=== PATIENT | female | born 1960 | race Caucasian/White ===

== ENCOUNTER → 2018-05-03 13:42 | Outpatient (CLI) | payer BC, SELFPAY ==
--- NOTE | 2018-05-03 | PATH_ITS ---
[facility] Accession Number: [id number] . 01 Material submitted: . LEFT BREAST MASS . 01 Clinical history: . LEFT BREAST MASS 3:00; 4 CM FROM NIPPLE . 02 Diagnosis: Left Breast Needle Core Biopsy at 3 o'clock, 4 cm from the Nipple: Benign epithelial cyst with areas of benign papillary epthelial hyperplasia and adjacent dense fibrosclerosis. Negative for significant atypia and malignancy. MRV/05/04/2018 . 02 Electronically signed: . Juanjose Gresham MD, Pathologist NPI- [id number] . 01 Gross description: . Received one formalin-filled container labeled with the patient's name and designated left breast mass 3 o'clock, 4 cm from nipple. The specimen is received with plastic filter in container. Sample loose in container. The specimen consists of multiple light yellow-stern portions of tissue, which aggregate to 1.0 x 0.5 x 0.3 cm. The specimen is filtered and entirely submitted in one cassette. Collection date 05/03/2018. Collection time per container is 2:20 p.m. Total fixation time 12 hours up to 24. ([id number][place] /[facility] . 02 Pathologist provided ICD-10: N60.12 . 02 CPT . 262441 Performed at: 01 [facility] [address] [facility], [place], [place] [id number] MD Krzysztof Villalobos MD Phone: [phone] Performed at: 02 [facility] [address] [place], [place] [id number] MD Hernesto Sarkar MD Phone: [phone]
--- NOTE | 2018-05-03 | DI.MG.S_ITS ---
UNILATERAL LEFT DIGITAL DIAGNOSTIC MAMMOGRAM: 05/03/2018 CLINICAL: Post left breast ultrasound biopsy clip placement imaging. Comparison is made to exams dated: 01/22/2018 mammogram, 01/04/2018 mammogram, and 07/30/2016 mammogram - [facility]. The tissue of the left breast is heterogeneously dense. This may lower the sensitivity of mammography. There is a marker clip in the appropriate position in the left breast at 3 o'clock anterior depth. This marker clip placement is at biopsy site. This correlates with the prior exam. IMPRESSION: POST PROCEDURE MAMMOGRAM FOR MARKER PLACEMENT There was a successful marker clip placement in the left breast anterior depth. This exam was interpreted at Station ID: [id number]. NOTE: For mammograms, a report in lay terms will be sent to the patient. Approximately 15% of breast malignancies will not be visualized mammographically. In the management of a palpable breast mass, a negative mammogram must not discourage biopsy of a clinically suspicious lesion. Electronically Signed By: Deonte cueto/:05/03/2018 15:27:12 ACR BI-RADS Category Post-procedure mammogram for marker placement
--- NOTE | 2018-05-03 13:45 | DI.US.S_ITS ---
ULTRASOUND GUIDED BIOPSY LEFT BREAST USING VACUUM DEVICE WITH MARKING DEVICE INSERTED AND POST DIGITAL MAMMOGRAPHIC AND ULTRASOUND IMAGIN05/03/2018 CLINICAL: Left breast mass. PATIENT CONSENT: Risks (minor bleeding, infection, vasovagal reaction and repeat procedure), benefits and alternatives were explained to the patient and written informed consent was obtained. Correlation is made to exams dated: 01/22/2018 ultrasound, 01/22/2018 mammogram, 01/04/2018 mammogram, and 07/30/2016 mammogram - . An ultrasound guided biopsy using real-time ultrasound was performed for the 1 cm circumscribed oval cystic mass located in the left breast at 3 o'clock middle depth. This was described on the previous ultrasound report. The skin was prepped in the usual manner. Local anesthetic was administered to the access site. A skin sania was made in the breast. The abnormality was approached from the lateral aspect. A 10 gauge biopsy needle was placed adjacent to the abnormality under ultrasound guidance. Once the needle was documented to be in the correct location, three specimens were obtained using the Mammotome biopsy system. The patient received additional local anesthetic during the procedure. A titanium clip was inserted into the biopsy cavity. A sterile dressing was applied to the access site. Post procedure digital mammographic and ultrasound imaging demonstrates the clip at the targeted area and complete removal of the abnormality. The specimens were sent to the laboratory for pathological analysis. IMPRESSION: ULTRASOUND GUIDED BIOPSY BENIGN Ultrasound guided biopsy of the 1 cm cystic mass in the left breast at 3 o'clock middle depth was successful. Pathology indicates benign epithelial cyst with areas of benign papillary epithelial hyperplasia and adjacent dense fibrosclerosis, negative for significant atypia or malignancy. Pathology results are concordant with imaging findings. A follow-up ultrasound in 6 months is recommended to demonstrate stability. These results will be communicated to the patient's ordering provider. This exam was interpreted at Station ID: [id number]. Deonte cueto,ecl/:05/12/2018 01:51:32
== END ==
PROVIDERS: Family Provider Internal Medicine; PCP Internal Medicine
DX: N60.02 Solitary cyst of left breast (principal); R92.8 Other abnormal and inconclusive findings on diagnostic imaging of breast
CPT/HCPCS: 19083; 77065

== ENCOUNTER → 2019-08-24 07:58 | Outpatient (CLI) | payer BC, SELFPAY ==
--- NOTE | 2019-08-24 | DI.MG.S_ITS ---
BILATERAL DIGITAL SCREENING MAMMOGRAM 3D/2D WITH CAD: 08/24/2019 CLINICAL: Routine screening. Family history of breast cancer. Comparison is made to exams dated: 05/03/2018 mammogram, 01/22/2018 mammogram, and 01/04/2018 mammogram - [facility]. The tissue of both breasts is heterogeneously dense. This may lower the sensitivity of mammography. Current study was also evaluated with a Computer Aided Detection (CAD) system. There are benign calcifications in the left breast. There also are benign post operative findings and biopsy clip in the left breast. No significant masses, calcifications, or other findings are seen in either breast. There has been no significant interval change. IMPRESSION: There is no mammographic evidence of malignancy. A 1 year screening mammogram is recommended. This exam was interpreted at Station ID: [id number]. NOTE: For mammograms, a report in lay terms will be sent to the patient. Approximately 15% of breast malignancies will not be visualized mammographically. In the management of a palpable breast mass, a negative mammogram must not discourage biopsy of a clinically suspicious lesion. Electronically Signed By: Efrain cohn/fiordaliza:08/24/2019 08:45:41 letter sent: Normal Exam ACR BI-RADS Category 2: Benign Finding(s) 3342F
== END ==
PROVIDERS: PCP Internal Medicine; Visit Provider Internal Medicine
DX: Z12.31 Encounter for screening mammogram for malignant neoplasm of breast (principal); Z80.3 Family history of malignant neoplasm of breast
CPT/HCPCS: 77063; 77067

== ENCOUNTER → 2019-08-25 14:48 | Outpatient (CLI) | payer BC, SELFPAY ==
--- NOTE | 2019-09-02 16:21 | PM.PFT.1 ---
Pulmonary Function Test Referral & Results Date Patient Seen: 08/25/19 Requesting provider: Marisa Chávez Results: The spirometry demonstrates an FVC of 3.62 L which is 100% of predicted. The FEV1 was measured at 2.87 L which is 102% of predicted. The FEV1/FVC ratio was 79 which is 100% of predicted. Following the administration of bronchodilator there was no appreciable change to above normal numbers. Lung volumes show an SVC of 3.63 L which is 109% of predicted. The diffusing capacity was measured at 25.02 which is 92% of predicted. The maximum voluntary ventilation was normal Interpretation: This study demonstrates normal pulmonary function
== END ==
PROVIDERS: PCP Internal Medicine; Visit Provider Internal Medicine
DX: R05 Cough (principal)
CPT/HCPCS: 94060; 94726; 94729

== ENCOUNTER → 2019-09-02 11:05 | Outpatient (CLI) | payer BC, SELFPAY ==
--- NOTE | 2019-09-02 | DI.CT.S_ITS ---
PROCEDURE: CT CHEST WO CON INDICATIONS: Cough TECHNIQUE: Noncontrast 5 mm thick sections acquired from the pulmonary apices to the posterior costophrenic angles. 1 mm lung window, 5 mm thick coronal and sagittal and 7 mm axial MIP reformats were then acquired. For radiation dose reduction, the following was used: automated exposure control, adjustment of mA and/or kV according to patient size. COMPARISON: None. FINDINGS: Image quality: Excellent. Lungs and pleura: Very minimal tree in bud and reticulonodular pattern at the central right lung base. Minor distal airways thickening in the right lower lobe. Airways are otherwise normal. No other parenchymal abnormalities, such as consolidations, cysts, nodules, or fibrotic changes. No pleural effusions or pneumothorax. Mediastinum: Heart size is normal. No pericardial effusion. No mediastinal adenopathy by size criteria. Thoracic aorta and central pulmonary arteries are normal in size. Esophagus is normal in caliber. No hiatal hernia. Bones and chest wall: No suspicious bony lesions. No vertebral body compression fractures. No axillary or supraclavicular adenopathy by size criteria. Thyroid gland is normal. Abdomen: Visualized upper abdomen demonstrates an irregular 2.7 cm hypodensity in the posterior right hepatic lobe. There are other subcentimeter ovoid focal hypodensities, presumably cysts towards the liver dome in the left lobe. The upper abdomen is otherwise normal. IMPRESSION: 1. Very small focus of alveolitis at the base of the right lower lobe without consolidation. Likely residual from bronchitis, less likely reactive airways disease or aspiration. 2. Lungs are otherwise clear. 3. Incidentally noted 2.7 cm hepatic hypodensity. This may be benign such as a hemangioma or multilobulated cyst. Further evaluation with liver protocol MRI with contrast is recommended. Dictated by: Mary Oro M.D. on 09/02/2019 at 14:08 Approved by: Mary Oro M.D. on 09/02/2019 at 14:23
== END ==
PROVIDERS: PCP Internal Medicine; Visit Provider Internal Medicine
DX: R05 Cough (principal)
CPT/HCPCS: 71250; 87070; 87205

== ENCOUNTER → 2019-09-02 11:41 | Outpatient (CLI) | payer BC, SELFPAY | PROVIDERS: PCP Internal Medicine; Visit Provider Internal Medicine | DX: R05 Cough (principal) | CPT/HCPCS: 87070; 87205 ==

== ENCOUNTER → 2019-10-19 16:39 | Outpatient (ROUT) | payer BC, SELFPAY ==
[2019-10-19 17:10] LABS: Add Manual Diff / Slide Review NO; Basophils Absolute Auto 0 /uL (0-100); Basophils Percent Auto 0.7 % (0-2); Eosinophils Absolute Auto 200 /uL (0-450); Eosinophils Percent Auto 3.7 % (2-4); Hematocrit 46.5 % (36-46); Hemoglobin 15.6 g/dL (12.0-16.0); Lymphocytes Absolute Auto 2300 /uL (1100-4500); Lymphocytes Percent Auto 41.1 % (25-40); Mean Corpuscular HGB Conc 33.6 % (30-36); Mean Corpuscular Hemoglobin 30.7 PG (26-34); Mean Corpuscular Volume 91.2 fL (80-100); Monocytes Absolute Auto 300 /uL (0-900); Monocytes Percent Auto 5.6 % (3-14); Neutrophils Absolute Auto 2700 /uL (1500-7000); Neutrophils Percent Auto 48.9 % (50-75); Platelet Count 308 X10^3/uL (150-400); Red Cell Distribution Width 13.4 % (11.6-14.8); White Blood Cell Count 5.5 X10^3/uL (4.5-11.0)
[2019-10-19 17:23] LABS: Alanine Aminotransferase 19 IU/L (<35); Albumin 4.6 g/dL (3.5-5.0); Albumin Globulin Ratio 1.3 (1.0-2.8); Alkaline Phosphatase 72 U/L (38-126); Aspartate Aminotransferase 22 IU/L (14-36); BUN Creatinine Ratio 15.7 (6-22); Bilirubin Total 0.6 mg/dL (0.2-1.3); Blood Urea Nitrogen 11 mg/dL (7-17); Calcium 9.9 mg/dL (8.4-10.2); Carbon Dioxide 24 mmol/L (22-32); Chloride 105 mmol/L (98-107); Cholesterol 302 mg/dL (140-199); Estimated Glomerular Filt Rate > 60.0 mL/min (>60); Globulin 3.6 g/dL (1.7-4.1); Glucose 97 mg/dL (70-100); HDL Cholesterol 47 mg/dL (40-60); HEMOLYSIS < 15 (0-50); LDL Cholesterol Calculated 220 mg/dL (<100); Potassium 4.9 mmol/L (3.4-5.1); Sodium 139 mmol/L (137-145); Total Protein 8.2 g/dL (6.3-8.2); Triglycerides 177 mg/dL (35-150)
[2019-10-19 17:24] LABS: C-Reactive Protein Quant < 0.5 mg/dL (<1.0)
[2019-10-19 17:34] LABS: Vitamin D 25 Hydroxy (D3) 32.1 ng/mL (30.0-100.0)
[2019-10-19 17:41] LABS: Erythrocyte Sedimentation Rate 6 MM/HR (0-20)
[2019-10-19 17:48] LABS: TSH w/ Reflex to FT4 2.54 uIU/mL (0.47-4.68)
[2019-10-19 18:09] LABS: Vitamin B12 551 pg/mL (239-931)
== END ==
PROVIDERS: PCP Internal Medicine; Visit Provider Internal Medicine
DX: R53.83 Other fatigue (principal); M79.10 Myalgia, unspecified site; M89.8X9 Other specified disorders of bone, unspecified site; E78.5 Hyperlipidemia, unspecified
CPT/HCPCS: 80053; 80061; 82306; 82607; 84443; 85025; 85651; 86140

== ENCOUNTER 2019-11-17 11:56 | Day surgery (SDC) | payer BC, SELFPAY ==
[2019-11-17 12:28] VITALS: BMI 28.8
[2019-11-17 12:36] VITALS: BP 139/98; PULSE 96; RESP 18; TEMP 36.9; O2SAT 98
[2019-11-17] MEDS: SODIUM CHLORIDE 0.9% 1,000 ML 200 ML IV (12:42)
--- NOTE | 2019-11-17 13:27 | PM.HP.1 ---
History of Present Illness History of Present Illness Date Patient Seen: 11/17/19 Time Patient Seen: 13:28 Chief complaint: [id number] Narrative: Patient presents for colorectal screening. They have never had any previous examination for such. No personal or family history of colon cancer. On further history denies any recent gastrointestinal symptoms. No nausea, vomiting, abdominal pain, loss of appetite, unexplained weight loss, change in bowel habits, diarrhea, constipation, melena, hematochezia, or bright red blood per rectum. Patient History Medical History (Updated 11/17/19 @ 13:29 by Sandor Banegas MD) Hypertension (Acute) Surgical History (Updated 11/17/19 @ 13:28 by Sandor Banegas MD) H/O sinus surgery (Acute) Family & Social History Tobacco & Substance use: Smoking Status Never smoker alcohol intake current alcohol intake frequency holiday/special occasion Substance Use Type does not use Meds Home Medications and Allergies Home Medications Medication Instructions Recorded Confirmed Type amlodipine 5 mg PO DAILY 11/17/19 11/17/19 History losartan 50 mg PO DAILY 11/17/19 11/17/19 History Allergies Allergy/AdvReac Type Severity Reaction Status Date / Time latex [LATEX] Allergy Mild RASH Verified 11/17/19 12:26 Review of Systems Review of Systems Narrative: A 10 point review of systems is negative except as noted in the HPI Exam Vital Signs (past 8 hours): - 11/17/19 12:36 Temperature 98.4 F Pulse Rate 96 H Respiratory Rate 18 Blood Pressure 139/98 H Pulse Oximetry 98 Oxygen Delivery Method Room Air Narrative Exam Narrative: General-no acute distress, well nourished HEENT-moist mucous membranes, no scleral icterus Neck-supple, no lymphadenopathy Chest- non labored respirations, clear to auscultation bilaterally Cardiac-regular rate no peripheral edema Abdomen-soft, nontender, non distended Extremities-warm, well perfused Neurological-alert and oriented, no focal deficits Assessment & Plan Assessment and plan (1) Screening for colon cancer: Current visit: Yes Status: Acute Assessment & Plan narrative: The patient requires colorectal screening and colonoscopy is recommended. Technical details were discussed. Risks, benefits, alternatives explained. Risks including but not limited to myocardial infarction, aspiration, bleeding, pain, missed lesion, incomplete examination, need for further radiographic studies, colonic perforation, and need for major abdominal surgery were discussed. All questions were answered to their satisfaction, and they are in agreement with this plan.
--- NOTE | 2019-11-17 13:30 | P.HP_ITS ---
History of Present Illness History of Present Illness Chief complaint: [id number] Narrative: Patient presents for colorectal screening. They have never had any previous examination for such. No personal or family history of colon cancer. On further history denies any recent gastrointestinal symptoms. No nausea, vom iting, abdominal pain, loss of appetite, unexplained weight loss, change in bowel habits, diarrhea, constipation, melena, hematochezia, or bright red blood per rectum. Patient History Medical History (Updated 11/17/19 @ 13:29 by Sandor Banegas MD) Hypertension (Acute) Surgical History (Updated 11/17/19 @ 13:28 by Sandor Banegas MD) H/O sinus surgery (Acute) Family & Social History Tobacco & Substance use: Smoking Status Never smoker alcohol intake current alcohol intake frequency holiday/special occasion Substance Use Type does not use Meds Home Medications and Allergies Home Medications Medication Instructions Recorded Confirmed Type amlodipine 5 mg PO DAILY 11/17/19 11/17/19 History losartan 50 mg PO DAILY 11/17/19 11/17/19 History Allergies Allergy/AdvReac Type Severity Reaction Status Date / Time latex [LATEX] Allergy Mild RASH Verified 11/17/19 12:26 Exam Vital Signs (past 8 hours): - 11/17/19 12:36 Temperature 98.4 F Pulse Rate 96 H Respiratory Rate 18 Blood Pressure 139/98 H Pulse Oximetry 98 Oxygen Delivery Method Room Air
--- NOTE | 2019-11-17 13:31 | PM.OP.ENDO ---
Operative Date/Time/Diagnoses Date of procedure: 11/17/19 Time of procedure: 13:31 Pre-op diagnosis: Screening colonoscopy Post-op diagnosis: same Procedure & Clinicians Study performed: Colonoscopy Same procedure as scheduled: Yes Indications: No prior colonoscopy screening Surgeon: Sandor Banegas Procedure Notes SCOAP/Timeout: Performed Procedure in detail: Patient placed in left lateral decubitus position. Time out was performed. Procedural sedation was administered with Versed and Fentanyl. A rectal exam demonstrated no external hemorrhoids no internal masses. Colonoscopy scope was placed into the rectum and advanced through the colon to the cecum. The ileocecal valve was identified. The scope was then slowly withdrawn examining colon thoroughly in all directions. The colonoscopy was notable for the following 1. No masses no polyps 2. No diverticulosis 3. Quality of prep excellent Scope withdrawal time: 6 Sedation minutes: 20 Specimen(s): none sent Complications: none Impression: Normal colonoscopy Post-procedure Recommendations: Colonscopy in 10 years Disposition: same day surgery
[2019-11-17] MEDS: MIDAZOLAM 5 MG/5 ML VIAL IV ×2 (13:34→13:38)
[2019-11-17] MEDS: fentaNYL 250 MCG/5 ML INJ IV (13:35)
[2019-11-17 13:53] VITALS: BP 127/76; PULSE 86; RESP 14; TEMP 35.9; O2SAT 95
[2019-11-17 13:58] VITALS: BP 103/68; PULSE 82; RESP 12; TEMP 36.4; O2SAT 95
[2019-11-17 14:03] VITALS: BP 133/91; PULSE 89; RESP 16; TEMP 36.4; O2SAT 94
--- NOTE | 2019-11-17 14:21 | SUR.PHASEII ---
Pt c/o nausea, queaze provided. Dr. Banegas notified. Emilee ordered. Patient then denied nausea. Tolerating juice. Drowsy. Call light within reach.
[2019-11-17 14:36] VITALS: BP 120/84; PULSE 73; RESP 19; TEMP 36.6; O2SAT 95
== END 2019-11-17 14:53 | disposition home or self-care (01) ==
PROVIDERS: PCP Internal Medicine; Referring Provider Surgery; Visit Provider Surgery
PROC: 0DJD8ZZ Inspection of Lower Intestinal Tract, Via Natural or Artificial Opening Endoscopic (ICD-10-PCS; CPT 45378; principal; 2019-11-17 13:00)
DX: Z12.11 Encounter for screening for malignant neoplasm of colon (principal)
CPT/HCPCS: 45378; 99152; J2250; J3010

== ENCOUNTER → 2020-06-25 18:28 | Outpatient (ROUT) | payer BC, SELFPAY ==
[2020-06-25 20:01] LABS: Alanine Aminotransferase 25 IU/L (<35); Albumin 4.3 g/dL (3.5-5.0); Albumin Globulin Ratio 1.4 (1.0-2.8); Alkaline Phosphatase 86 U/L (38-126); Aspartate Aminotransferase 25 IU/L (14-36); BUN Creatinine Ratio 11.6 (6-22); Bilirubin Total 0.6 mg/dL (0.2-1.3); Blood Urea Nitrogen 8 mg/dL (7-17); Calcium 9.4 mg/dL (8.4-10.2); Carbon Dioxide 29 mmol/L (22-32); Chloride 102 mmol/L (98-107); Cholesterol 177 mg/dL (140-199); Estimated Glomerular Filt Rate > 60.0 mL/min (>60); Globulin 3.1 g/dL (1.7-4.1); Glucose 83 mg/dL (70-100); HDL Cholesterol 46 mg/dL (40-60); HEMOLYSIS < 15 (0-50); LDL Cholesterol Calculated 97 mg/dL (<100); Potassium 4.3 mmol/L (3.4-5.1); Sodium 140 mmol/L (137-145); Total Protein 7.4 g/dL (6.3-8.2); Triglycerides 170 mg/dL (35-150)
[2020-06-25 20:40] LABS: TSH w/ Reflex to FT4 2.04 uIU/mL (0.47-4.68)
== END ==
PROVIDERS: PCP Internal Medicine; Visit Provider Internal Medicine
DX: E78.5 Hyperlipidemia, unspecified (principal); I10 Essential (primary) hypertension; F41.9 Anxiety disorder, unspecified
CPT/HCPCS: 80053; 80061; 84443

== ENCOUNTER → 2020-08-31 10:15 | Outpatient (CLI) | payer BC, SELFPAY ==
[2020-08-31 11:58] LABS: COVID19 -Nasal RAPID Negative (Negative)
== END ==
PROVIDERS: PCP Internal Medicine; Visit Provider Surgery
DX: Z01.812 Encounter for preprocedural laboratory examination (principal); Z20.828 Contact with and (suspected) exposure to other viral communicable diseases
CPT/HCPCS: 87635; C9803

== ENCOUNTER 2020-09-03 08:03 | Day surgery (SDC) | payer BC, SELFPAY ==
[2020-09-03] VITALS (7 sets, daily range): BP systolic 129–157; BP diastolic 80–96; PULSE 75–83; RESP 12–18; TEMP 36.3–37.3; O2SAT 91–96; BMI 30.8
[2020-09-03] MEDS: LACTATED RINGERS 1,000 ML 200 ML IV (08:38)
[2020-09-03] MEDS: LIDOCAINE 4% SOLN 50 ML 20 ML TOP (09:20)
--- NOTE | 2020-09-03 09:20 | PM.PREOP ---
Pre-operative Note COVID-19 COVID-19 status: Negative Interval Note History & Physical reviewed/Exam performed by Physician: Yes Changes to H&P: No ASA Class (for procedural sedation): II
[2020-09-03] MEDS: MIDAZOLAM 5 MG/5 ML VIAL IV (09:23)
[2020-09-03] MEDS: fentaNYL 250 MCG/5 ML INJ IV (09:23)
--- NOTE | 2020-09-03 09:32 | PM.OP.ENDO ---
Operative Date/Time/Diagnoses Date of procedure: 09/03/20 Time of procedure: 09:32 Pre-op diagnosis: Gastroesophageal reflux disease Post-op diagnosis: other (Hiatal hernia) Procedure & Clinicians Study performed: Esophagoduodenoscopy Same procedure as scheduled: Yes Indications: Gastroesophageal reflux disease Surgeon: Sandor Banegas Procedure Notes Procedure in detail: Patient placed in left lateral decubitus position. Time out was performed. Procedural sedation was administered with Versed and Fentanyl. A bite block was placed. the scope was inserted into the mouth and advanced through the esophagus and into the stomach. The pylorus was intubated and the duodenum was normal to the 2nd portion. The scope was retroflexed within the stomach and there was a moderate size hiatal hernia. No ulcers, or gastritis. The scope was withdrawn into the esophagus the Z line was seen at 40 cm from the incisions. There was no Cuenca's esophagitis or masses or strictures. Stomach was desufflated and scope removed. Patient tolerated procedure well. Sedation minutes: 7 Specimen(s): none sent Complications: none Impression: Hiatal hernia Post-procedure Recommendations: Reflux diet and Continue medication(s) (Omeprazole) Disposition: same day surgery
--- NOTE | 2020-09-03 09:53 | SUR.PHASEI ---
Normal pacu stay, to OPD
== END 2020-09-03 10:45 | disposition home or self-care (01) ==
PROVIDERS: PCP Internal Medicine; Referring Provider Internal Medicine; Visit Provider Surgery
PROC: 0DJ08ZZ Inspection of Upper Intestinal Tract, Via Natural or Artificial Opening Endoscopic (ICD-10-PCS; CPT 43235; principal; 2020-09-03 09:15)
DX: K21.9 Gastro-esophageal reflux disease without esophagitis (principal); I10 Essential (primary) hypertension; K44.9 Diaphragmatic hernia without obstruction or gangrene
CPT/HCPCS: 43235; 99152; J2250; J3010

== ENCOUNTER → 2020-09-27 09:21 | Outpatient (CLI) | payer BC, SELFPAY ==
--- NOTE | 2020-09-27 | DI.ECHO.S_ITS ---
Version: 1 Study ID: [id number] [place] [address] Name: FOX JON Study Date: 09/27/2020, 9: 43 AM : 1960 BP: 151 / 94 mmHg Gender: Female Height: 66.14 in Age: 60 Years Weight: 185 lb BSA: 1.94 mA? Ordering: NATE MIJARES Referring: NATE MIJARES Clinician: Arlene Welsh Reason For Study: OTHER CHEST PAIN History: Summary Statements Normal sinus rhythm. Normal LV size, wall thickness, wall motion and LV systolic function. EF is 55-60%. Normal chamber sizes. No significant valvular abnormalities. No prior study available for comparison. Procedure: A two-dimensional transthoracic echocardiogram with color flow and Doppler was performed. The study quality was technically adequate. There is no prior echocardiogram noted for this patient. The patient was in sinus rhythm with heart rates between 70-81 bpm during the exam. Left Ventricle: Diastolic parameters suggest probable normal left ventricular diastolic function and normal filling pressures. The ejection fraction is estimated to be 55-60%. The left ventricle is normal in size and wall thickness. Right Ventricle: The right ventricle is normal in size and function. Atria: There is no Doppler evidence for an interatrial shunt. The left atrial size is normal. Right atrial size is normal. Mitral Valve: There is mild mitral regurgitation. The mitral valve is normal in structure and function. Aortic Valve: No aortic regurgitation is present. There is no aortic valve stenosis. The aortic valve is not well visualized. The aortic valve is grossly normal. Tricuspid Valve: There is trace tricuspid regurgitation. Pulmonary artery pressures cannot be estimated because of the lack of a measurable TR jet velocity but the IVC suggests a CVP of around 3 mmHg. The tricuspid valve is normal in structure and function. Pulmonic Valve: There is trace pulmonic regurgitation. The pulmonic valve is not well seen, but is grossly normal. Great Vessels: The dimensions of the ascending aorta are normal. The aortic root is normal size. The IVC is of normal diameter and collapses greater than 50% with a sniff. This suggests a low right atrial pressure of 3 mm Hg. Pericardium/ Pleura: There is no pericardial effusion. There is no pleural effusion. 2D and M-Mode Measurements and Calculations LVIDd: 5.0 cm AoV Openin.72 cm LVIDs: 3.7 cm LVOT diam: 2.16 cm IVSd: 0.94 cm Ao root diam: 3.0 cm LVPWd: 0.83 cm asc Aorta Diam: 3.3 cm LV alvarez. diameter/BSA (cm/m^2): 2.6 Ao Arch Diam (Prox Trans): 2.37 cm LV sys. diameter/BSA (cm/m^2): 1.90 EPSS: 0.46 cm RVD1 (basal): 3.3 cm IVC diam: 1.37 cm TAPSE: 1.87 cm LA A4 area: 18.2 auto clutch specialist? RA area: 16.7 auto clutch specialist? LA A2 area: 17.4 auto clutch specialist? RA long axis: 5.1 cm LA length (vol): 4.3 cm RA vol: 46.2 ml LA vol: 62.0 ml RA : 23.8 ml/mA? LA vol index: 32.0 ml/mA? Doppler Measurements and Calculations Ao V2 max: 141.7 cm/sec LVOT Max Geoffrey: 98.2 cm/sec Ao V2 mean: 89.9 cm/sec LV V1 max P.9 mmHg Ao V2 VTI: 26.4 cm LV V1 VTI: 19.8 cm Ao max P.0 mmHg Ao mean P.8 mmHg NANCY(I,D): 2.8 auto clutch specialist? NANCY(V,D): 2.6 auto clutch specialist? NANCY indexed to BSA (cm^2/m^2): 1.42 sev ratio: 0.75 MV E max geoffrey: 64.4 cm/sec MV dec time: 0.21 sec MV A max geoffrey: 64.7 cm/sec MV E/A: 1.00 Med Peak E' Geoffrey: 6.3 cm/sec Lat Peak E' Geoffrey: 9.4 cm/sec E/e' average: 8.5 PA V2 max: 52.9 cm/sec PA mean P.62 mmHg Electronically signed by: Alie Neely M.D. 09/28/2020, 1: 20 AM
== END ==
PROVIDERS: PCP Internal Medicine; Referring Provider Internal Medicine; Visit Provider Internal Medicine
DX: I34.0 Nonrheumatic mitral (valve) insufficiency (principal); R07.89 Other chest pain
CPT/HCPCS: 93306

== ENCOUNTER → 2020-10-16 09:55 | Outpatient (CLI) | payer BC, SELFPAY ==
--- NOTE | 2020-10-16 10:36 | DI.CT.S_ITS ---
PROCEDURE: CT CHEST WO CON INDICATIONS: nonspecific lung image TECHNIQUE: Noncontrast 5 mm thick sections acquired from the pulmonary apices to the posterior costophrenic angles. 1 mm lung window, 5 mm thick coronal and sagittal and 7 mm axial MIP reformats were then acquired. For radiation dose reduction, the following was used: automated exposure control, adjustment of mA and/or kV according to patient size. COMPARISON: [facility], CT, CT CHEST WO CON, 09/02/2019, 11:08. FINDINGS: Image quality: Excellent. Lungs and pleura: No acute air space opacities. No pleural effusions or pneumothorax. Central and peripheral airways are patent and normal in caliber. Previous focus of peripheral right lower lobe reticular nodular pattern is no longer visualized. Mediastinum: Heart size is normal. No pericardial effusion. No mediastinal adenopathy by size criteria. Thoracic aorta and central pulmonary arteries are normal in size. Esophagus is normal in caliber. No hiatal hernia. Bones and chest wall: No suspicious bony lesions. No vertebral body compression fractures. No axillary or supraclavicular adenopathy by size criteria. Thyroid gland is unremarkable . Abdomen: Unchanged ill-defined posterior right hepatic hypodensity. . Visualized upper abdominal solid organs and bowel loops appear normal in the absence of contrast. IMPRESSION: 1. Previously noted peripheral reticular nodular focus in the right lung base is no longer visualized. 2. Ill-defined posterior right hepatic hypodensity, unchanged. As previously noted, is indeterminate on the basis of this examination, further evaluation with focal ultrasound or MRI liver protocol is recommended Dictated by: Lauren Piedra M.D. on 10/16/2020 at 11:17 Approved by: Lauren Piedra M.D. on 10/16/2020 at 11:21
== END ==
PROVIDERS: PCP Internal Medicine; Referring Provider Internal Medicine Critical Care Medicine; Visit Provider Internal Medicine Critical Care Medicine
DX: R91.8 Other nonspecific abnormal finding of lung field (principal)
CPT/HCPCS: 71250

== ENCOUNTER → 2023-09-16 13:35 | Outpatient (CLI) | payer BC, SELFPAY ==
--- NOTE | 2023-09-16 | DI.MG.S_ITS ---
BILATERAL DIGITAL SCREENING MAMMOGRAM 3D/2D WITH CAD: 09/16/2023 CLINICAL: Routine screening. Family history of breast cancer. Comparison is made to exams dated: 08/24/2019 mammogram, 05/03/2018 mammogram, 01/22/2018 mammogram, 01/04/2018 mammogram, and 07/30/2016 mammogram - [facility]. Both breasts are heterogeneously dense, which may obscure small masses (category c / 51-75% glandular tissue). Current study was also evaluated with a Computer Aided Detection (CAD) system. There are benign calcifications in the left breast. There also are benign post operative findings and biopsy clip in the left breast. No significant masses, calcifications, or other findings are seen in either breast. There has been no significant interval change. IMPRESSION: BENIGN There is no mammographic evidence of malignancy. A 1 year screening mammogram is recommended. Based on Tyrer-Cuzick model (a risk assessment model), the patient's lifetime risk is 29.5% and her 10 year risk is 13.6%. If a patient has an elevated risk, a more comprehensive evaluation should be considered and/or a referral to a genetic counselor. The [employer], [employer], and NCCN Guidelines advise the consideration of Breast MRI as an adjunct to screening mammography in patients whose Lifetime risk to develop breast cancer is 20% or higher. This exam was interpreted at Station ID: [id number]. NOTE: For mammograms, a report in lay terms will be sent to the patient. Approximately 15% of breast malignancies will not be visualized mammographically. In the management of a palpable breast mass, a negative mammogram must not discourage biopsy of a clinically suspicious lesion. Electronically Signed By: Sven pimentel/fiordaliza:09/16/2023 16:06:33 letter sent: Normal Exam ACR BI-RADS Category 2: Benign Finding(s) 3342F
== END ==
PROVIDERS: PCP Family Medicine; Referring Provider Family Medicine; Visit Provider Family Medicine
DX: Z12.31 Encounter for screening mammogram for malignant neoplasm of breast (principal); Z80.3 Family history of malignant neoplasm of breast
CPT/HCPCS: 77063; 77067